=== PATIENT | male | born 1965 | race Caucasian/White ===

== ENCOUNTER 2017-01-07 08:07 | Day surgery (SDC) | payer MEDICAID ==
[2017-01-07] MEDS ORDERED: Lactated Ringers 1,000 ML IV SCH (08:15)
[2017-01-07] MEDS ORDERED: Sodium Chloride 0.9% 10 ML Syringe FLUSH PRN (08:15)
[2017-01-07] MEDS ORDERED: Midazolam 1 MG/ML 2 ML SDV IV ONE (09:30)
[2017-01-07] MEDS ORDERED: Propofol 200 MG/20 ML SDV IV ONE (09:30)
--- NOTE | 2017-01-07 10:05 | PCM.OPNOTE ---
- General Post-Op/Procedure Note Date of Surgery/Procedure: 01/07/17 Operative Procedure(s): c scope with bx Findings: rectal polyp Pre Op Diagnosis: screening Post-Op Diagnosis: rectal polyp Anesthesia Technique: MAC Primary Surgeon: Isreal Thompson Anesthesia Provider: Na Kebede Pathology: rectal polyp Complications: None Condition: Good Free Text/Narrative:: see dictation
--- NOTE | 2017-01-07 10:47 | OR ---
DATE OF OPERATION: 01/07/2017 SURGEON: Isreal Thompson MD PROCEDURE PERFORMED: Colonoscopy with cold forceps biopsy. PREOPERATIVE DIAGNOSIS: Need for screening colonoscope. POSTOPERATIVE DIAGNOSIS: Rectal polyp. INDICATIONS FOR PROCEDURE: This is a 51-year-old male referred for screening colonoscopy. He was offered and accepted the same. DESCRIPTION OF OPERATION: After an excellent IV sedation was administered, digital rectal exam was performed. No marked abnormality was noted. Flexible colonoscope was inserted and advanced to the cecum without difficulty. The following findings were noted. Ascending colon, unremarkable. Transverse colon, unremarkable. Descending colon, unremarkable. Sigmoid, unremarkable. Rectum, a small polypoid lesion, biopsied with cold biopsy forceps and sent for permanent. The colon was deflated. The scope was removed. The patient tolerated the procedure well and was taken to recovery in good condition. /[id number] /HUSSEINL
[2017-01-07 11:11] VITALS: BP 110/84
== END 2017-01-07 11:11 | disposition home or self-care (01) ==
LOC: FB.SDS 08:07
PROVIDERS: ATTEND Surgery
DX: Z12.11 Encounter for screening for malignant neoplasm of colon (principal); K62.1 Rectal polyp; I48.91 Unspecified atrial fibrillation; E03.9 Hypothyroidism, unspecified; Z88.4 Allergy status to anesthetic agent; F17.210 Nicotine dependence, cigarettes, uncomplicated; F10.21 Alcohol dependence, in remission; Z79.01 Long term (current) use of anticoagulants; Z79.899 Other long term (current) drug therapy
CPT/HCPCS: 45380; 88305; J2250; J2704; J7120

== ENCOUNTER 2017-10-22 22:03 | Emergency (ER) | payer MEDICAID ==
[2017-10-23 00:03] VITALS: BP 126/89
--- NOTE | 2017-10-26 13:54 | ER ---
DATE SEEN: 10/22/2017 TIME SEEN: The patient was seen at 2210 hours. HISTORY OF PRESENT ILLNESS: This is a 52-year-old [place] fellow comes in after surgery 10/22/2017, which he had a thyroidectomy for refractory Graves disease, and he has a drain placed in his lower neck and is bleeding. He complains because the drain was taken out this morning, and he is worried about the bleeding. Small amount of bleeding noted. PAST MEDICAL HISTORY: Significant for acute respiratory failure, alcohol use, atrial fibrillation, long-term use of anticoagulants, alcohol withdrawal, arthritis in knees, status post thyroidectomy. He had knee implant, 03/16/2016. Also mesh graft placed 06/03/2016 (probably inguinal hernia repair). CURRENT MEDICATIONS: 1. Oxycodone. 2. Levothyroxine. 3. Metoprolol tartrate 25 mg b.i.d. 4. Omeprazole 20 mg daily. 5. Gabapentin 300 mg twice a day. 6. Diltiazem 240 mg daily. PHYSICAL EXAMINATION: VITAL SIGNS: Blood pressure 135/86, heart rate 72, respirations 18, oxygen saturation 99%, temperature 35.9 degrees centigrade. GENERAL: He is an overweight gentleman, has a slightly harsh voice. He is reasonably well dressed and he is worried about the bleeding in his neck. HEENT: He is missing several teeth. Apparently, he is scheduled for jaw surgery because he has a problem with his mandibles. TMs negative. Pharynx without abnormality. Gag is in place. Uvula midline. Tongue midline. NECK: No tracheal tug. He has mild fullness below the anterior-inferior neck incision. No erythema, no redness, no drainage. 15 cm below this, at the drain site with small amount of blood. The bleeding is resolved with pressure. LUNGS: Clear without rales, rhonchi, or wheezes. HEART: S1, S2. No murmur. No stridor. Mild difficulty flexing neck and extending the neck because of surgical incision. His voice is slightly hoarse. ABDOMEN: Nontender. No guarding. No masses. EXTREMITIES: Without edema. LABORATORY DATA: The patient's calcium is in normal range at 9.1. It was 9.0 this afternoon at 1700. ASSESSMENT: 1. Graves disease with resection of thyroid. 2. Small amount of bleeding at the drain site, which is the major concern with the patient. This was stemmed by placing large gauze with special dressing to buttress this against the neck. 3. No compromised respiratory passages. 4. No respiratory distress. 5. Hoarse voice, mild laryngitis secondary to surgery. 6. No evidence for thyroid complications of surgical excision of large thyroid- Graves disease. 7. Past medical history of respiratory failure, Graves disease, atrial fibrillation, alcohol abuse, acute respiratory failure, dyslipidemia. No medicines prescribed. /[id number] NIKITA/KASH
== END 2017-10-22 23:45 | disposition home or self-care (01) ==
LOC: FB.ED 22:03 → MERGE 22:03 → FB.ED 23:45
DX: E89.810 Postprocedural hemorrhage of an endocrine system organ or structure following an endocrine system procedure (principal); E05.00 Thyrotoxicosis with diffuse goiter without thyrotoxic crisis or storm; I48.91 Unspecified atrial fibrillation; J04.0 Acute laryngitis
CPT/HCPCS: 36415; 82310; 84100; 99282